=== PATIENT | female | born 2000 | race Caucasian/White ===

== ENCOUNTER 2024-03-22 20:02 | Emergency (ER) | payer OTHER, SELFPAY ==
[2024-03-22] VITALS (13 sets, daily range): BP systolic 134–164; BP diastolic 62–72; PULSE 69–94; TEMP 36.7; O2SAT 98–100; BMI 46.1
--- NOTE | 2024-03-22 20:21 | XR_ITS ---
[address] [address] Patient Name: KODY AGUILERA MRN: [id number] date: 2000 Sex: F Assigned Patient Location: ER Current Patient Location: ED.MAIN Accession/Order Number: [id number] Exam Date: 03/22/2024 20:28 Report Date: 03/22/2024 21:21 At the request of: EWELNIA MCGUIRE Procedure: XR chest 1V EXAM: XR chest 1V HISTORY: Shortness of breath COMPARISON: None. TECHNIQUE: Frontal view of the chest. FINDINGS: No focal consolidations or pleural effusions. Cardiac mediastinal silhouette is unremarkable. Visualized osseous structures are unremarkable. The study is limited due to body habitus. XR/XR chest 1V IMPRESSION: No acute disease. Electronically authenticated by: ABELARDO LOZOYA Date: 03/22/2024 21:21
--- NOTE | 2024-03-22 20:22 | ED.SOB1 ---
HPI - SOB/Dyspnea General Chief Complaint: Shortness of Breath/Dyspnea Stated Complaint: BWC - Difficulty Breathing Time Seen by Provider: 03/22/24 20:10 Source: patient Mode of arrival: walk-in History of Present Illness HPI Narrative: Patient is a 24 year old female who presents to the ED for the evaluation of chest tightness and headache after being exposed to liquid hydrochloric acid Work. 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 She states she was exposed to the area for approximately 15 minutes before she noticed she was developing a headache and chest tightness. She arrives to the emergency department extremely anxious and tearful. She had no syncope, She did not have any direct chemical exposure to the skin. There was no aerosolized acid or gas form that she inhaled. She is not concerned for . She has had no recent illness, vomiting. No hemoptysis or sputum production. She denies any swelling in the arms or legs. No rashes. Related Data Allergies Allergy/AdvReac Type Severity Reaction Status Date / Time Penicillins Allergy Mild Hives Verified 03/22/24 20:15 Review of Systems ROS Constitutional Denies: fever or chills Ears, nose, mouth, and throat Denies: throat pain or nasal congestion Cardiovascular Reports: chest pain and palpitations Respiratory Reports: shortness of breath; Denies: cough Gastrointestinal Denies: abdominal pain, nausea or vomiting Musculoskeletal Denies: back pain Integumentary/Breast Denies: rash Neurological Reports: headache Hematologic/Lymphatic Denies: easy bruising or easy bleeding Exam Narrative Exam Narrative: Gen.: Awake, alert, in no distress Head: Normocephalic, atraumatic ENT: Moist mucous membranes; Mild tonsillar edema without exudate. Uvula midline. Clear speech. Airway widely open and patent. Respiratory: No respiratory distress, lungs clear bilaterally; No wheezing, rhonchi or stridor. Cardio: Regular rate and rhythm Extremities: Moves extremities equally Psych: Tearful, anxious Neuro: No focal neuro deficit Skin: Warm, dry, intact; No rashes Constitutional Vital Signs, click to edit/add: Last Vital Signs Temp 98.1 F 03/22/24 20:09 Pulse 90 03/22/24 22:00 Resp 20 03/22/24 22:00 BP 134/62 03/22/24 22:12 Pulse Ox 98 03/22/24 20:40 O2 Del Method Room Air 03/22/24 20:40 Course Vital Signs Vital signs: Vital Signs Temperature 98.1 F 03/22/24 20:09 Pulse Rate 80 03/22/24 20:09 Respiratory Rate 18 03/22/24 20:09 Blood Pressure 164/72 H 03/22/24 20:09 Pulse Oximetry 100 03/22/24 20:09 Oxygen Delivery Method Room Air 03/22/24 20:09 Temperature 98.1 F 03/22/24 20:09 Pulse Rate 90 03/22/24 22:00 Respiratory Rate 20 03/22/24 22:00 Blood Pressure 134/62 03/22/24 22:12 Pulse Oximetry 98 03/22/24 20:40 Oxygen Delivery Method Room Air 03/22/24 20:40 MDM - SOB/Dyspnea MDM Narrative Medical decision making narrative: G, chest x-ray and lab studies are unremarkable. I did discuss the case with poison control, they recommend a venous blood gas, which is normal. Patient is improved on reevaluation, she is much more calm and breathing easily. She has normal vital signs, no decompensation of her respiratory status or new symptoms. She was given a breathing treatment in the ER with Decadron and ibuprofen for headache. Albuterol inhaler given for home. Activity as tolerated for work, return to the emergency department if symptoms change or worsen. Medical Records Attestation: I reviewed the patient's medical records. Lab Data Attestation: I reviewed the patient's lab results. Labs: Lab Results 03/22/24 Range/Units 20:38 WBC 9.1 (4.0-11.0) 10^3/uL RBC 4.64 (4.20-5.40) 10^6/uL Hgb 13.1 (12.0-16.0) g/dL Hct 40.3 (36.0-48.0) % MCV 86.9 (81.0-99.0) fL MCH 28.2 (26.7-34.0) pg MCHC 32.5 (29.9-35.2) g/dL RDW 12.5 (11.0-15.0) % Plt Count 381 (150-450) 10^3/uL MPV 9.3 L (9.5-13.5) fL Neut % (Auto) 53.8 (43.0-75.0) % Lymph % (Auto) 37.9 (20.5-60.0) % Emmons % (Auto) 5.9 (1.7-12.0) % Eos % (Auto) 1.5 (0.9-7.0) % Baso % (Auto) 0.6 (0.2-2.0) % Neut # (Auto) 4.9 (1.4-6.5) 10^3/uL Lymph # (Auto) 3.4 (1.2-3.8) 10^3/uL Emmons # (Auto) 0.5 (0.3-0.8) 10^3/uL Eos # (Auto) 0.1 (0.0-0.7) 10^3/uL Baso # (Auto) 0.1 (0.0-0.1) 10^3/uL Abs Immat Gran (auto) 0.03 (0.00-0.03) 10^3/uL Imm/Tot Granulo (auto) 0.3 (0.0-0.5) % VBG pH 7.394 (7.330-7.430) VBG pCO2 43.7 (40.0-52.0) mmHg Sodium 138 (136-145) mmol/L Potassium 3.6 (3.5-5.1) mmol/L Chloride 101 (98-107) mmol/L Carbon Dioxide 28.1 (21.0-32.0) mmol/L Anion Gap 12.5 BUN 15.0 (7.0-18.0) mg/dL Creatinine 0.89 (0.55-1.02) mg/dL Est GFR ( Amer) >60 (>=60) Est GFR (Non-Af Amer) >60 (>=60) BUN/Creatinine Ratio 16.9 Glucose 92 (74-106) mg/dL Calcium 9.8 (8.5-10.1) mg/dL TSH 1.847 (0.358-3.740) uIU/mL Imaging Data Chest x-ray: Attestation: I have reviewed the pertinent imaging results. Radiologist's impression: ITS Impressions Chest X-Ray 03/22/24 20:21 IMPRESSION: No acute disease. Electronically authenticated by: ABELARDO LOZOYA Date: 03/22/2024 21:21 ECG Data Attestation: I personally reviewed and interpreted this ECG as follows: (Normal sinus rhythm at a rate of 80 with sinus arrhythmia, no acute ST elevation or ectopy. EKG reviewed by attending physician) ECG interpretation date: 03/22/24 ECG interpretation time: 20:37 Discharge Plan Discharge Stand Alone Forms: Portal Instructions Chief Complaint: Shortness of Breath/Dyspnea Clinical Impression: Chemical exposure Patient Disposition: Home, Self-Care Time of Disposition Decision: 21:48 Condition: Good Print Language: Lithuanian Instructions: Contact Precautions (ED) Referrals: [facility] [Outside] - As soon as possible Discharge Date/Time: 03/22/24 22:21
--- NOTE | 2024-03-22 20:29 | ECG_ITS ---
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
[2024-03-22] MEDS: ALBUTEROL SULFATE 2.5 MG/3 ML VIAL NEB IH (20:35)
[2024-03-22 20:46] LABS: PCO2 VBG 43.7 mmHg (40.0-52.0); pH VBG 7.394 (7.330-7.430)
[2024-03-22 20:47] LABS: Basophils Absolute Auto 0.1 10^3/uL (0.0-0.1); Basophils Percent Auto 0.6 % (0.2-2.0); Eosinophils Absolute Auto 0.1 10^3/uL (0.0-0.7); Eosinophils Percent Auto 1.5 % (0.9-7.0); Hematocrit 40.3 % (36.0-48.0); Hemoglobin 13.1 g/dL (12.0-16.0); Immature Granulocytes Abs Auto 0.03 10^3/uL (0.00-0.03); Immature Granulocytes Pct Auto 0.3 % (0.0-0.5); Lymphocytes Absolute Auto 3.4 10^3/uL (1.2-3.8); Lymphocytes Percent Auto 37.9 % (20.5-60.0); Mean Corpuscular HGB Conc 32.5 g/dL (29.9-35.2); Mean Corpuscular Hemoglobin 28.2 pg (26.7-34.0); Mean Corpuscular Volume 86.9 fL (81.0-99.0); Mean Platelet Volume 9.3 fL (9.5-13.5); Monocytes Absolute Auto 0.5 10^3/uL (0.3-0.8); Monocytes Percent Auto 5.9 % (1.7-12.0); Neutrophils Absolute Auto 4.9 10^3/uL (1.4-6.5); Neutrophils Percent Auto 53.8 % (43.0-75.0); Platelet Count 381 10^3/uL (150-450); Red Blood Count 4.64 10^6/uL (4.20-5.40); Red Cell Distribution Width 12.5 % (11.0-15.0); White Blood Count 9.1 10^3/uL (4.0-11.0)
[2024-03-22 21:08] LABS: Anion Gap 12.5; BUN Creatinine Ratio 16.9; Calcium 9.8 mg/dL (8.5-10.1); Carbon Dioxide 28.1 mmol/L (21.0-32.0); Chloride 101 mmol/L (98-107); Estimated GFR (African America >60 (>=60); Estimated GFR (Non-African Ame >60 (>=60); Glucose 92 mg/dL (74-106); Potassium 3.6 mmol/L (3.5-5.1); Sodium 138 mmol/L (136-145); Thyroid Stimulating Hormone 1.847 uIU/mL (0.358-3.740)
[2024-03-22] MEDS: DEXAMETHASONE SOD PHOS 10 MG/ML VIAL PO (21:17)
[2024-03-22] MEDS: IBUPROFEN 600 MG TABLET PO (21:17)
[2024-03-22] MEDS: ALBUTEROL SULFATE 200 PUFF/6.7 GM INHALER IH (22:10)
== END 2024-03-22 22:21 | disposition home or self-care (01) ==
PROVIDERS: Physician Assistant; Emergency Provider Internal Medicine
DX: Z77.098 Contact with and (suspected) exposure to other hazardous, chiefly nonmedicinal, chemicals (principal); R07.89 Other chest pain; R06.02 Shortness of breath
CPT/HCPCS: 36415; 71045; 80048; 82800; 84443; 85025; 93005; 94640; 99285; J1100

== ENCOUNTER 2024-03-27 13:13 | Emergency (ER) | payer OTHER, SELFPAY ==
[2024-03-27 13:16] VITALS: BP 144/72; PULSE 108; TEMP 36.9; O2SAT 97; BMI 46.1
--- NOTE | 2024-03-27 13:39 | XR_ITS ---
The [address] [address] Patient Name: KODY AGUILERA MRN: [id number] date: 2000 Sex: F Assigned Patient Location: ER Current Patient Location: ER Accession/Order Number: [id number] Exam Date: 03/27/2024 14:00 Report Date: 03/27/2024 14:17 At the request of: DEX THAKKAR Procedure: XR chest 2V EXAM: XR chest 2V HISTORY: SOB COMPARISON: Chest study dated 03/22/2024 TECHNIQUE: PA and lateral views of the chest were obtained. FINDINGS: Heart and mediastinal contours are unremarkable in appearance. No acute infiltrate or consolidations are seen. No obvious pneumothorax. Slight convexity of the dorsal spine to the right. Findings compatible with nipple piercing jewelry bilaterally. XR/XR chest 2V IMPRESSION: No acute process seen in the chest. Electronically authenticated by: LAM MEDINA Date: 03/27/2024 14:17
--- NOTE | 2024-03-27 13:55 | ED.GENADUL1 ---
HPI HPI - General Adult General Chief complaint: Shortness of Breath/Dyspnea Stated complaint: SOB Time Seen by Provider: 03/27/24 13:35 Source: patient Mode of arrival: walk-in Limitations: no limitations History of Present Illness HPI narrative: Patient is a 24-year-old female presents to the ER with concerns of shortness of breath. Patient reports on 03/22 she was exposed to hydrochloric acid at work that was leaking from a train car. Patient reports at that time she had irritation to her throat lungs and headache, her headache has resolved, patient still reports some irritation in her throat but has no difficulty eating or drinking. Patient states she was trying to clean at home and noticed that she was still short of breath with activity, she has no significant symptoms at rest or with light activity but expressed concern about returning to work tomorrow with her symptoms still lingering. Patient has not yet been seen in the occupational medicine clinic. She denies any cough. She denies any chest pain or discomfort she denies any recent long travels flights or surgeries.Denies any eye irritation or visual disturbance. She denies any history of smoking or prior asthma. Location: Reports chest; Denies head Quality: Reports burning Relieving factors: Reports rest Exacerbating factors: Reports movement Related Data Home Medications ?Medication ?Instructions ?Recorded ?Confirmed No Known Home Medications 03/27/24 03/27/24 Allergies Allergy/AdvReac Type Severity Reaction Status Date / Time Penicillins Allergy Mild Hives Verified 03/22/24 20:15 Opioid HPI Opioid Management Most Recent Opioid Data: No Data to Display Review of Systems ROS Constitutional Denies: fever or chills Eyes Denies: change in vision, blurry vision or eye discomfort Ears, nose, mouth, and throat Reports: throat pain; Denies: neck pain, throat swelling, difficulty swallowing, hoarseness, mouth pain, swelling of lips/tongue or nasal congestion Cardiovascular Reports: shortness of breath with exertion; Denies: chest pain, palpitations, edema, swelling of feet/ankles or lightheadedness Respiratory Reports: shortness of breath; Denies: cough or wheezing Gastrointestinal Denies: abdominal pain, nausea or vomiting Genitourinary Denies: painful urination Musculoskeletal Denies: back pain, neck pain or extremity pain Integumentary/Breast Denies: rash, itching, redness or skin pain Neurological Denies: headache, numbness in extremities or weakness in extremities Psychiatric Denies: anxiety Endocrine Denies: excessive urination Allergic/Immunologic Denies: hives or throat swelling Exam Narrative Exam Narrative: Nurses notes and vital signs reviewed and patient is not hypoxic. General: The patient appears well and in no apparent distress. Patient is resting comfortably on cart. Skin: Warm, dry, no pallor noted. Head: Normocephalic, atraumatic Neck: Supple, trachea mid-line, no tenderness, no lymphadenopathy Eye: Pupils are equal, round and reactive to light, EOMI Ears, Nose, Mouth, and Throat: TM are clear, normal light reflex, oral mucosa is moist, no posterior oropharynx erythema or hypertrophy,No evidence of irritation to posterior pharynx uvula is mid-line Cardiovascular: Regular Rate and Rhythm Respiratory: Patient is in no distress, no accessory muscle use, lungs are clear to auscultation, no wheezing, rales or rhonchi. Chest Wall: no tenderness Back: non-tender, no CVA tenderness Musculoskeletal: normal ROM, no tenderness, no swelling GI: Normal bowel sounds, no tenderness to palpation, no masses appreciated. No rebound, guarding, or rigidity noted. Neurological: A&O x4 Psychiatric: Cooperative Constitutional Vital Signs, click to edit/add: Last Vital Signs Temp 98.5 F 03/27/24 13:16 Pulse 108 H 03/27/24 13:16 Resp 18 03/27/24 13:16 BP 144/72 H 03/27/24 13:16 Pulse Ox 97 03/27/24 13:16 O2 Del Method Room Air 03/27/24 13:16 Course Vital Signs Vital signs: Vital Signs Temperature 98.5 F 03/27/24 13:16 Pulse Rate 108 H 03/27/24 13:16 Respiratory Rate 18 03/27/24 13:16 Blood Pressure 144/72 H 03/27/24 13:16 Pulse Oximetry 97 03/27/24 13:16 Oxygen Delivery Method Room Air 03/27/24 13:16 Temperature 98.5 F 03/27/24 13:16 Pulse Rate 108 H 03/27/24 13:16 Respiratory Rate 18 03/27/24 13:16 Blood Pressure 144/72 H 03/27/24 13:16 Pulse Oximetry 97 03/27/24 13:16 Oxygen Delivery Method Room Air 03/27/24 13:16 Medical Decision Making MDM Narrative Medical decision making narrative: Patient reevaluated, notes that she is doing well. She has her inhaler previously prescribed, states she is only used it once or twice today and her chief concern is about returning to work tomorrow without restrictions. We discussed her work, recommend appointment with occupational medicine clinic. I did contact them directly and they are able to see her on Saturday at 11:15 AM. Patient is agreeable to this appointment. She may return to the ER at any time should she develop any worsening shortness of breath. Patient will try to limit exposures over the weekend and rest, Imaging Data Chest x-ray: Radiologist's impression: ITS Impressions Chest X-Ray 03/27/24 13:39 IMPRESSION: No acute process seen in the chest. Electronically authenticated by: LAM MEDINA Date: 03/27/2024 14:17 Discharge Plan Discharge Stand Alone Forms: Portal Instructions Chief Complaint: Shortness of Breath/Dyspnea Clinical Impression: Chemical exposure, Shortness of breath Patient Disposition: Home, Self-Care Time of Disposition Decision: 14:24 Condition: Good Prescriptions / Home Meds: No Action No Known Home Medications Print Language: Mauritian Instructions: Shortness of Breath (ED) Referrals: [facility] [Outside] - 03/31/24 11:15 am Discharge Date/Time: 03/27/24 14:40
== END 2024-03-27 14:40 | disposition home or self-care (01) ==
PROVIDERS: Emergency Provider Emergency Medicine
DX: Z77.098 Contact with and (suspected) exposure to other hazardous, chiefly nonmedicinal, chemicals (principal); R06.02 Shortness of breath
CPT/HCPCS: 71046; 99283

== ENCOUNTER 2024-05-06 18:06 | Emergency (ER) | payer OTHER, SELFPAY ==
[2024-05-06 18:11] VITALS: BP 133/98; PULSE 77; TEMP 37.3; O2SAT 99; BMI 44.3
--- OUTSIDE RECORDS SUMMARY | 2024-05-06 18:13 | XMS_ITS | CCD ---
Author Organization [facility] Care Team Providers Care Summer Law Clerk Name Role Phone PHYSICIAN, DEFAULT Unavailable Unavailable PHYSICIAN, DEFAULT Unavailable Unavailable PHYSICIAN, DEFAULT Unavailable Unavailable PHYSICIAN, DEFAULT Unavailable Unavailable NINA, CHERIE H Unavailable Unavailable NINA, CHERIE H Unavailable Unavailable MJ JOEL Unavailable Unavailable [place] IGLESIAS Unavailable Unavailable [place] Unavailable Unavailable NINA, CHERIE H Unavailable Unavailable [place] Unavailable Unavailable KEOPANTERA Unavailable Unavailable NINA, CHERIE H Unavailable Unavailable NINA, CHERIE H Unavailable Unavailable SELF, REFERRED Unavailable Unavailable SELF, REFERRED Unavailable Unavailable ArjunCynthia Attending Unavailable ArjunCynthia Referring Unavailable Arjun, Cynthia Guthrie Primary Care Unavailable ArjunCynthia Attending Unavailable ArjunCynthia Referring Unavailable Arjun, Cynthia Ann Primary Care Unavailable Judy Mejia Attending Unavailable Judy Mejia Referring Unavailable Arjun, Cynthia Jerri Primary Care Unavailable Jered Canales Attending Unavailabl e Jered Canales Referring Unavailabl e Arjun, Cynthia Guthrie Primary Care Unavailable ArjunCynthia Attending Unavailable ArjunCynthia Referring Unavailable ArjunCynthia Primary Care Unavailable Tor Patino Unavailable Unavailable Arjun, Cynthia A Unavailable Unavailable Arjun, Cynthia A Unavailable Unavailable NO FAMILY, PHYSICIAN Primary Care Provider Unava ilDO Dillon Cohen Emergency Provider Unavai Dillon Cano Attending Unavailable Dillon José Admitting Unavailable NO FAMILY, PHYSICIAN Primary Care Unavailable ROSANGELA POND Attending Unavailable CUTLER, FABY L Attending Unavailable LG GONZALEZ Referring Unavailable CUTLER, FABY L Attending Unavailable CUTLER, FABY L Attending Unavailable Allergies Allergy Classification Reported Allergen(s) Allergy Type Date of Onset Reaction(s) Facility (1 source) NKA; Translations: [NKA] Propensity to adverse reactions (disorder) 7 [facility] (1 source) No Known Allergies; Translations: [No Known Allergies] Propensity to adverse reactions (disorder) [facility] (2 sources) Penicillins; Translations: [Penicillins] Allergy to drug (finding) 3 Swelling of Lip/Tongue/Thro at [facility] (1 source) Penicillins Drug allergy (disorder) 3 [facility] Medications Current Medications Medication Drug Class(es) Dates Sig (Normalized) Sig (Original) [place] (No Known Home Meds) (1 source) Start: 01-26-2020 [place] (No Known Home Meds) Active January 26, 2020 12:00am Completed/Discontinued Medications Medication Drug Class(es) Dates Sig (Normalized) Sig (Original) acetaminophen 325 mg / HYDROcodone bitartrate 5 mg oral tablet (1 source) Opioid Agonist Start: 9 End: 9 take 2 tablets by mouth every four to six hours Hydrocodone-Acetami nophen ([place]) 5-325 mg tablet Discontinued 2 TAB PO EVERY 4-6 HOURS 10 2 February 23, 2019 February 25, 2019 12:05am azithromycin 250 mg oral tablet (1 source) Macrolide Antimicrobial Start: 9 End: 0 take 250 mg by mouth once daily Azithromycin Discontinued 250 MG PO Daily February 23, 2019 12:00am January 26, 2020 4:00pm cyclobenzaprine hydrochloride 10 mg oral tablet (1 source) Muscle Relaxant Start: 8 End: 9 Cyclobenzaprine Discontinued TABLET October 12, 2018 1:00am February 23, 2019 1:05am diphenhydrAMINE hydrochloride 25 mg oral capsule (1 source) Histamine-1 Receptor Antagonist Start: 8 End: 9 take 1 capsule by mouth every four hours Diphenhydramine Hcl (Benadryl) 25 mg capsule Discontinued 25 MG PO Q4H 20 October 12, 2018 1:00am February 23, 2019 1:05am fluticasone propionate 0.05 mg/actuat metered dose nasal spray (1 source) Corticosteroid Start: 9 End: 0 take 1 spray(s) nasal route twice daily Fluticasone Propionate (Flonase Allergy Relief) 50 mcg/actuation spray,suspension Discontinued 1 SPRAY INTRANASAL Twice daily 9.9 February 23, 2019 12:00am January 26, 2020 4:00pm administer into each nostril ibuprofen 800 mg oral tablet (1 source) Nonsteroidal Anti-inflammatory Drug Start: 8 End: 0 take 800 mg by mouth every six hours Ibuprofen Discontinued 800 MG PO Q6H October 12, 2018 1:00am January 26, 2020 4:00pm meloxicam 15 mg oral tablet (1 source) Nonsteroidal Anti-inflammatory Drug Start: 8 End: 9 Meloxicam Discontinued TABLET October 12, 2018 1:00am February 23, 2019 1:05am nitrofurantoin, macrocrystals 25 mg / nitrofurantoin, monohydrate 75 mg oral capsule (1 source) Nitrofuran Antibacterial Start: 0 End: 2 take 1 capsule by mouth twice daily at mealtime Nitrofurantoin Monohyd/M-Cryst (Macrobid) 100 mg capsule Discontinued 100 MG PO Twice daily 10 5 January 28, 2020 12:00am January 14, 2022 2:48am must administer with a meal/food phentermine hydrochloride 37.5 mg oral tablet (1 source) Sympathomimetic Amine Anorectic Start: 8 End: 9 Phentermine Discontinued TABLET October 12, 2018 1:00am February 23, 2019 1:06am predniSONE 20 mg oral tablet (1 source) Start: 8 End: 9 Prednisone Discontinued 20 MG PO Daily October 12, 2018 1:00am February 23, 2019 1:05am 60mg for 3 days then 40mg for 3 days then 20 mg for 3 days then 10mg for 3 days sulfamethoxazole 800 mg / trimethoprim 160 mg oral tablet (1 source) Dihydrofolate Reductase Inhibitor Antibacterial, Sulfonamide Antimicrobial Start: 9 take 1 tablet by mouth twice daily Sulfamethoxazole-Tr imethoprim 800-160 MG Oral Tablet one tablet twice daily Quantity: 20 Refills: 0 Tor Patino MD Start : 27-Oct-2019 Active SUMAtriptan 50 mg oral tablet (1 source) Serotonin-1b and Serotonin-1d Receptor Agonist Start: 0 End: 2 take 1 tablet by mouth once daily Sumatriptan Succinate (Imitrex) 50 mg tablet Discontinued 0 PO .COMPLEX January 28, 2020 12:00am January 14, 2022 2:49am take 1 tab at onset of headache; if no relief may repeat 1 tab in 2hr; max = 4 tabs/day (24hr) Problems Active Problems Problem Classification Problem Date Documented Da te Episodic/Chronic Alcohol-related disorders (1 source) Alcohol intoxication; Translations: [Alcohol use, unspecified with intoxication, unspecified] 01-14-2022 Episodic Anxiety disorders (1 source) Anxiety disorder; Translations: [Anxiety disorder, unspecified type] Chronic Conditions associated with dizziness or vertigo (2 sources) Dizziness; Translations: [Dizziness and giddiness] Onset: 04-29-2023 04-29-2023 Episodic Headache; including migraine (2 sources) Status migrainosus; Translations: [Migraine, unspecified, not intractable, with status migrainosus] 01-26-2020 Chronic Menstrual disorders (1 source) Menorrhagia; Translations: [Menorrhagia with regular cycle] Chronic Mood disorders (1 source) Depressive disorder; Translations: [Depression] Chronic Other circulatory disease (1 source) Feeling of lump in throat; Translations: [History of Sensation of lump in throat] Episodic Other connective tissue disease (1 source) Neurological deficit; Translations: [Other symptoms and signs involving the nervous system] 01-26-2020 Episodic Other connective tissue disease (1 source) Weakness of face muscles; Translations: [Facial weakness] 01-26-2020 Episodic Other fractures (1 source) Personal history of (healed) stress fracture; Translations: [History of stress fracture] Episodic Other lower respiratory disease (1 source) H/O: respiratory disease; Translations: [History of acute sinusitis] Episodic Other nervous system disorders (1 source) Numbness of foot ; Translations: [Anesthesia of skin] 01-26-2020 Episodic Other nervous system disorders (1 source) Numbness of hand; Translations: [Anesthesia of skin] 01-26-2020 Episodic Other non-traumatic joint disorders (3 sources) Pain in left knee; Translations: [PAIN IN LEFT KNEE] Onset: 03-25-2018 Episodic Other nutritional; endocrine; and metabolic disorders (1 source) Childhood obesity; Translations: [BMI (body mass index), pediatric, greater than or equal to 95% for age] Chronic Other nutritional; endocrine; and metabolic disorders (1 source) Abnormal weight gain; Translations: [Weight gain, abnormal] Episodic Other nutritional; endocrine; and metabolic disorders (1 source) Weight gain; Translations: [History of Weight gain] Episodic Other upper respiratory infections (1 source) Acute bacterial pharyngitis; Translations: [History of Pharyngitis due to group A beta hemolytic Streptococci] Episodic Skin and subcutaneous tissue infections (1 source) Abscess; Translations: [Abscess] Episodic Sprains and strains (2 sources) Strain of right quadriceps muscle, fascia and tendon, initial encounter; Translations: [Strain of left quadriceps muscle, fascia and tendon, initial encounter] Onset: 10-31-2017 Episodic Unclassified (2 sources) Unknown / UNK(Unknown) Onset: 10-31-2017 Past or Other Problems Problem Classification Problem Date Documented Da te Episodic/Chronic Joint disorders and dislocations; trauma-related (4 sources) Recurrent dislocation of patella, right knee; Translations: [RECURRENT DISLOCATION OF PATELLA, RIGHT KNEE] Onset: 10-31-2017 Episodic Residual codes; unclassified (1 source) Requires vaccination; Translations: [Need for vaccination] Unclassified (1 source) History finding; Translations: [No pertinent past medical history] Unclassified (1 source) Patient encounter status; Translations: [Encounter for routine child health examination without abnormal findings] Unclassified (1 source) History of clinical finding in subject; Translations: [History of cough] NEGATED: Highlighted row has not occurred!Residual codes; unclassified (6 sources) Disease Episodic Results Test Name Value Interpretation Reference Range Facility Basic Metabolic Panelon 04-11 Anion gap [Moles/Vol] 12.1 mmol/L Normal 6.0-15.0 [facility] Comment on above: Performed By: #### H S TROP, BMP, CBC #### [facility] [address] Calcium [Mass/Vol] 9.2 mg/dL Normal 8.6-10.3 [facility] Comment on above: Performed By: #### H S TROP, BMP, CBC #### [facility] [address] [place] [address] [place] Chloride [Moles/Vol] 106 mmol/L Normal 98-107 [facility] Comment on above: Performed By: #### H S TROP, BMP, CBC #### [facility] [address] [place] [address] [place] CO2 [Moles/Vol] 24.7 mmol/L Normal 21.0-31.0 [facility] Comment on above: Performed By: #### H S TROP, BMP, CBC #### [facility] [address] Creatinine [Mass/Vol] 0.71 mg/dL Normal 0.60-1.20 [facility] Comment on above: Performed By: #### H S TROP, BMP, CBC #### [facility] [address] [place] [address] [place] Creatinine Clr Calc Pharmacy 148.61 [facility] Comment on above: Result Comment: PERF ORMED BY: [place] [address] PATHOLOGIST COFFEE BREWER BECKY APARICIO M.D. Performed By: #### H S TROP, BMP, CBC #### [place] [address] [place] GFR/1.73 sq M.predicted MDRD (S/P/Bld) [Vol rate/Area] mL/min/{1.73_m2} [facility] Comment on above: Performed By: #### H S TROP, BMP, CBC #### [facility] [address] [place] [address] [place] Glucose [Mass/Vol] 101 mg/dL High 70-100 [facility] Comment on above: Result Comment: [place] Glucose Reference Range is dependent on time and content of last meal. Glucose of more than 200 mg/dL in a nonstressed, ambulatory subject supports the diagnosis of Diabetes Mellitus. ADA recommended reference range Performed By: #### H S TROP, BMP, CBC #### [facility] [address] [place] [address] [place] Potassium [Moles/Vol] 3.8 mmol/L Normal 3.5-5.1 [facility] Comment on above: Performed By: #### H S TROP, BMP, CBC #### [facility] [address] [place] [address] [place] Sodium [Moles/Vol] 139 mmol/L Normal 136-145 [facility] Comment on above: Performed By: #### H S TROP, BMP, CBC #### [facility] [address] Urea nitrogen [Mass/Vol] 13 mg/dL Normal 7-25 [facility] Comment on above: Performed By: #### H S TROP, BMP, CBC #### [facility] [address] Basophils Auto (Bld) [#/Vol] Ordered By: Dillon José on 04-29-2023 Basophils (Bld) [#/Vol] 0.1 10*3/uL 0.0-0.2 [facility] Basophils/100 WBC Auto (Bld) Ordered By: Dillon José on 04-29-2023 Basophils/100 WBC (Bld) 0.8 % . [facility] Bilirubin Test strip Ql (U)O rdered By: Dillon José on 04-29-2023 Bilirubin Ql (U) Negative Negative [facility] Calcium [Mass/volume] in Ser um or PlasmaOrdered By: Dillon José on 04-29-2023 Calcium [Mass/Vol] 9.2 mg/dL 8.6-10.3 [facility] Carbon dioxide, total [Moles /volume] in Serum or PlasmaOrdered By: Dillon José on 04-29-2023 CO2 [Moles/Vol] 24.7 mmol/L 21.0-31.0 [facility] Chloride [Moles/volume] in S michael or PlasmaOrdered By: Dillon José on 04-29-2023 Chloride [Moles/Vol] 106 mmol/L 98-107 [facility] Color Auto (U)Ordered By: Dania José on 04-29-2023 Color (U) Yellow Yellow [facility] Complete Blood Count Auto Di ffon 04-29-2023 Basophils (Bld) [#/Vol] 0.1 10*3/uL Normal 0.0-0.2 [facility] Comment on above: Result Comment: PERF ORMED BY: [facility] [address] [place] [address] PATHOLOGIST COFFEE BREWER BECKY APARICIO M.D. Performed By: #### H S TROP, BMP, CBC #### [facility] [address] [place] [address] [place] Basophils/100 WBC (Bld) 0.8 % Normal . [facility] Comment on above: Performed By: #### H S TROP, BMP, CBC #### [facility] [address] [place] [address] [place] Eosinophils (Bld) [#/Vol] 0.1 10*3/uL Normal 0.0-0.45 [facility] Comment on above: Performed By: #### H S TROP, BMP, CBC #### [facility] [address] [place] [address] [place] Eosinophils/100 WBC (Bld) 1.8 % Normal . [facility] Comment on above: Performed By: #### H S TROP, BMP, CBC #### [facility] [address] [place] [address] [place] Erythrocyte distribution width (RBC) [Ratio] 13.1 % Normal 11.9-15.3 [facility] Comment on above: Performed By: #### H S TROP, BMP, CBC #### [facility] [address] [place] [address] [place] Hematocrit (Bld) [Volume fraction] 39.5 % Normal 34.0-46.4 [facility] Comment on above: Performed By: #### H S TROP, BMP, CBC #### [facility] [address] [place] [address] [place] Hemoglobin (Bld) [Mass/Vol] 13.5 g/dL Normal 11.8-15.4 [facility] Comment on above: Performed By: #### H S TROP, BMP, CBC #### [facility] [address] [place] [address] Lymphocytes (Bld) [#/Vol] 2.7 10*3/uL Normal 1.00-4.8 [facility] Comment on above: Performed By: #### H S TROP, BMP, CBC #### [address] Lymphocytes/100 WBC (Bld) 33.8 % Normal . [facility] Comment on above: Performed By: #### H S TROP, BMP, CBC #### [address] MCH (RBC) [Entitic mass] 28.6 pg Normal 24.7-34.3 [facility] Comment on above: Performed By: #### H S TROP, BMP, CBC #### [address] MCV (RBC) [Entitic vol] 83.5 fL Normal 80-100 [facility] Comment on above: Performed By: #### H S TROP, BMP, CBC #### [address] Mean Corpuscular HGB Conc 34.3 g/dL Normal 32.0-35.0 [facility] Comment on above: Performed By: #### H S TROP, BMP, CBC #### [address] Monocytes (Bld) [#/Vol] 0.5 10*3/uL Normal 0.0-0.8 [facility] Comment on above: Performed By: #### H S TROP, BMP, CBC #### [place] [address] [place] Monocytes/100 WBC (Bld) 18.91 % Normal 0.00-20.00 [facility] Comment on above: Performed By: #### H S TROP, BMP, CBC #### [address] Monocytes/100 WBC (Bld) 6.4 % Normal . [facility] Comment on above: Performed By: #### H S TROP BMP, CBC #### [facility] [address] Neutrophils (Bld) [#/Vol] 4.5 10*3/uL Normal 1.8-7.7 [facility] Comment on above: Performed By: #### H S TROP BMP, CBC #### [address] Neutrophils/100 WBC (Bld) 57.2 % Normal . [facility] Comment on above: Performed By: #### H Catracho DIAMOND BMP, CBC #### [address] NRBC% 0.0 /100{WBC} Normal 0-0.5 [facility] Comment on above: Performed By: #### H Catracho TROP BMP, CBC #### [address] Platelet mean volume (Bld) [Entitic vol] 7.2 fL Normal 6.3-10.7 [facility] Comment on above: Performed By: #### H Catracho TROP BMP, CBC #### [place] [address] [place] Platelets (Bld) [#/Vol] 353 10*3/uL Normal 150-450 [facility] Comment on above: Performed By: #### H S TROP BMP, CBC #### [address] RBC (Bld) [#/Vol] 4.73 10*6/uL Normal 3.60-5.00 [facility] Comment on above: Performed By: #### H S TROP BMP, CBC #### [place] [address] [place] WBC (Bld) [#/Vol] 7.9 10*3/uL Normal 3.8-11.6 [facility] Comment on above: Performed By: #### H S TROP BMP, CBC #### [facility] [address] [place] [id number] [facility] Creatinine [Mass/volume] in Serum or PlasmaOrdered By: Dillon José on 04-29-2023 Creatinine [Mass/Vol] 0.71 mg/dL 0.60-1.20 [facility] ECG 12 lead ECGon 04-29-2023 ECG 12 lead ECG [facility] [place] [address] [place] [address] Electrocardiograph Report Signed Patient: Milena Aguilera MR#: [id number] : 2000 Acct:[id number] Age/Sex: 23 / F ADM Date: 04/29/23 Loc: ER Room: Type: [facility] ER Attending Dr: Ordering Provider: Dillon José DO Date of Service: 04/29/23 ECG/ECG 12 lead ECG: Dizziness Copies to: Test Reason : Blood Pressure : 140/073 mmHG Vent. Rate : 060 BPM Atrial Rate : 060 BPM P-R Int : 120 ms QRS Dur : 074 ms QT Int : 422 ms P-R-T Axes : 030 084 061 degrees QTc Int : 422 ms Normal sinus rhythm Confirmed by Dillon José DO ([id number]) on 04/30/2023 3:41:47 AM Referred By: Electronically Signed By:Dillon José DO Transcribed By: MUS Signed By Dillon José DO 0341 Normal [facility] Eosinophils Auto (Bld) [#/Vo l]Ordered By: Dillon José on 04-29-2023 Eosinophils (Bld) [#/Vol] 0.1 10*3/uL 0.0-0.45 [facility] Eosinophils/100 WBC Auto (Bl d)Ordered By: Dillon José on 04-29-2023 Eosinophils/100 WBC (Bld) 1.8 % . [facility] Erythrocyte distribution wid th Auto (RBC) [Ratio]Ordered By: Dillon José on 04-29-2023 Erythrocyte distribution width (RBC) [Ratio] 13.1 % 11.9-15.3 [facility] Glucose [Mass/volume] in Ser um or PlasmaOrdered By: Dillon José on 04-29-2023 Glucose [Mass/Vol] 101 mg/dL 70-100 [facility] Comment on above: ADA recommended refe rence rangeRandom Glucose Reference Range is dependent on time and content of last meal. Glucose of more than 200 mg/dL in a nonstressed, ambulatory subject supports the diagnosis of Diabetes Mellitus. HCG ( test) IA.rapi d Ql (U)Ordered By: Dillon José on 04-29-2023 HCG ( test) Ql (U) Negative [facility] HCG,Urineon 04-29-2023 Beta HCG ( test) Ql (U) Negative Normal [facility] Comment on above: Order Comment: Name Collection Type:: Clean-Voided Midstream Result Comment: PERF ORMED BY: [place] [address] PATHOLOGIST COFFEE BREWER BECKY APARICIO M.D. Performed By: #### U A, [facility] #### [address] Hematocrit Auto (Bld) [Volum e fraction]Ordered By: Dillon José on 04-29-2023 Hematocrit (Bld) [Volume fraction] 39.5 % 34.0-46.4 [facility] Hemoglobin [Mass/volume] in BloodOrdered By: Dillon José on 04-29-2023 Hemoglobin (Bld) [Mass/Vol] 13.5 g/dL 11.8-15.4 [facility] Ketones Auto test strip (U) [Mass/Vol]Ordered By: Dillon José on 04-29-2023 Ketones (U) [Mass/Vol] Negative Negative [facility] Leukocytes [#/volume] correc tomi for nucleated erythrocytes in Blood by Automated counOrdered By: Dillon José on 04-29-2023 WBC corrected for nucl RBC Auto (Bld) [#/Vol] 7.9 10*3/uL 3.8-11.6 [facility] Lymphocytes Auto (Bld) [#/Vo l]Ordered By: Dillon José on 04-29-2023 Lymphocytes (Bld) [#/Vol] 2.7 10*3/uL 1.00-4.8 [facility] Lymphocytes/100 WBC Auto (Bl d)Ordered By: Dillon José on 04-29-2023 Lymphocytes/100 WBC (Bld) 33.8 % . [facility] MCH Auto (RBC) [Entitic mass ]Ordered By: Dillon José on 04-29-2023 MCH (RBC) [Entitic mass] 28.6 pg 24.7-34.3 [facility] MCHC Auto (RBC) [Mass/Vol]Or dered By: Dillon José on 04-29-2023 MCHC (RBC) [Mass/Vol] 34.3 g/dL 32.0-35.[address] [facility] MCV Auto (RBC) [Entitic vol] Ordered By: Dillon José on 04-29-2023 MCV (RBC) [Entitic vol] 83.5 fL 80-100 [facility] Monocyte distribution width [Entitic volume] in Blood by AutomatedOrdered By: Dillon José on 04-29-2023 Monocyte distribution width Auto (Bld) [Entitic vol] 18.91 % 0.00-20.00 [facility] Monocytes Auto (Bld) [#/Vol] Ordered By: Dillon José on 04-29-2023 Monocytes (Bld) [#/Vol] 0.5 10*3/uL 0.0-0.8 [facility] Monocytes/100 WBC Auto (Bld) Ordered By: Dillon José on 04-29-2023 Monocytes/100 WBC (Bld) 6.4 % . [facility] Neutrophils Auto (Bld) [#/Vo l]Ordered By: Dillon José on 04-29-2023 Neutrophils (Bld) [#/Vol] 4.5 10*3/uL 1.8-7.7 [facility] Neutrophils/100 WBC Auto (Bl d)Ordered By: Dillon José on 04-29-2023 Neutrophils/100 WBC (Bld) 57.2 % . [facility] Nitrite Test strip Ql (U)Ord ered By: Dillon José on 04-29-2023 Nitrite Ql (U) Negative Negative [facility] No Panel InformationOrdered By: Dillon José on 04-29-2023 Estimated GFR (CKD-EPI) > 60.0 mL/Min [facility] Creatinine Clearance (Chem 148.61 [facility] Nucleated erythrocytes [Pres ence] in Blood by Automated countOrdered By: Dillon José on 04-29-2023 Nucleated RBC Auto Ql (Bld) 0.0 /100{WBC} 0-0.5 [facility] Platelet mean volume Auto (B ld) [Entitic vol]Ordered By: Dillon José on 04-29-2023 Platelet mean volume (Bld) [Entitic vol] 7.2 fL 6.3-10.7 [facility] Platelets Auto (Bld) [#/Vol] Ordered By: Dillon José on 04-29-2023 Platelets (Bld) [#/Vol] 353 10*3/uL 150-450 [facility] Potassium [Moles/volume] in Serum or PlasmaOrdered By: Dillon José on 04-29-2023 Potassium [Moles/Vol] 3.8 mmol/L 3.5-5.1 [facility] Protein Auto test strip (U) [Mass/Vol]Ordered By: Dillon José on 04-29-2023 Protein (U) [Mass/Vol] Negative Negative [facility] RBC Auto (Bld) [#/Vol]Ordere d By: Dillon José on 04-29-2023 RBC (Bld) [#/Vol] 4.73 10*6/uL 3.60-5.00 [facility] Serum or plasma anion gap de terminationOrdered By: Dillon José on 04-29-2023 Anion gap [Moles/Vol] 12.1 mmol/L 6.0-15.0 [facility] Sodium [Moles/volume] in Ser um or PlasmaOrdered By: Dillon José on 04-29-2023 Sodium [Moles/Vol] 139 mmol/L 136-145 [facility] Specific gravity Auto test s trip (U) [Rel density]Ordered By: Dillon José on 04-29-2023 Specific gravity (U) [Rel density] 1.020 1.001-1.030 [facility] Troponin I High Sensitivityo n 04-29-2023 Troponin I High Sensitivity < 2.3 Normal 0.0-15.0 [facility] Comment on above: Result Comment: PERF ORMED BY: [address] [place] [address] PATHOLOGIST COFFEE BREWER BECKY APARICIO M.D. Performed By: #### H S TROP, BMP, CBC #### [facility] [address] Troponin I.cardiac [Mass/vol ume] in Serum or Plasma by Detection limit <= 0.01 ng/Ordered By: Dillon José on 04-29-2023 Troponin I.cardiac DL <= 0.01 ng/mL [Mass/Vol] < 2.3 pg/mL 0.0-15.0 [facility] Urea nitrogen [Mass/volume] in Serum or PlasmaOrdered By: Dillon José on 04-29-2023 Urea nitrogen [Mass/Vol] 13 mg/dL 06-04 [facility] Urinalysison 04-29-2023 Appearance (U) Clear Normal Clear [facility] Comment on above: Order Comment: Name Collection Type:: Clean-Voided Midstream Performed By: #### U A, UHCG #### [facility] [address] [place] [address] [place] Bilirubin,Urine Negative Normal Negative [facility] Comment on above: Order Comment: Name Collection Type:: Clean-Voided Midstream Performed By: #### U A, UHCG #### [facility] [address] [place] [id number] [place] Color (U) Yellow Normal Yellow [facility] Comment on above: Order Comment: Name Collection Type:: Clean-Voided Midstream Performed By: #### U A, UHCG #### [facility] [address] [id number] [place] Glucose Ql (U) Normal Normal Normal [facility] Comment on above: Order Comment: Name Collection Type:: Clean-Voided Midstream Performed By: #### U A, UHCG #### [address] Ketones Ql (U) Negative Normal Negative [facility] Comment on above: Order Comment: Name Collection Type:: Clean-Voided Midstream Performed By: #### U A, UHCG #### [address] Leukocyte esterase Test strip Ql (U) Negative Normal Negative [facility] Comment on above: Order Comment: Name Collection Type:: Clean-Voided Midstream Performed By: #### U A, UHCG #### [address] Nitrite,Urine Negative Normal Negative [facility] Comment on above: Order Comment: Name Collection Type:: Clean-Voided Midstream Performed By: #### U A, UHCG #### [address] Occult Blood,Urine Negative Normal Negative [facility] Comment on above: Order Comment: Name Collection Type:: Clean-Voided Midstream Performed By: #### U A, UHCG #### [address] pH (U) 7.0 [pH] Normal 5.0-9.0 [facility] Comment on above: Order Comment: Name Collection Type:: Clean-Voided Midstream Performed By: #### U A, UHCG #### [place] [address] [place] Protein,Urine Negative Normal Negative [facility] Comment on above: Order Comment: Name Collection Type:: Clean-Voided Midstream Performed By: #### U A, UHCG #### [address] Specificy [place],Urine 1.020 Normal 1.001-1.030 [facility] Comment on above: Order Comment: Name Collection Type:: Clean-Voided Midstream Performed By: #### U A, UHCG #### [facility] [address] Urobilinogen,Urine Normal Normal Normal [facility] Comment on above: Order Comment: Name Collection Type:: Clean-Voided Midstream Performed By: #### U A, UHCG #### [facility] [address] Urine clarity by refractomet ry automatedOrdered By: Dillon José on 04-29-2023 Clarity Refractometry automated (U) Clear Clear [facility] Urine glucose measurement by automated test strip (mass/volume)Ordered By: Dillon José on 04-29-2023 Glucose Auto test strip (U) [Mass/Vol] Normal mg/dL Normal [facility] Urine hemoglobin detection b y automated test stripOrdered By: Dillon José on 04-29-2023 Hemoglobin Auto test strip Ql (U) Negative Negative [facility] Urine leukocyte esterase det ection by automated test stripOrdered By: Dillon José on 04-29-2023 Leukocyte esterase Auto test strip Ql (U) Negative Negative [facility] Urobilinogen Auto test strip (U) [Mass/Vol]Ordered By: Dillon José on 04-29-2023 Urobilinogen (U) [Mass/Vol] Normal mg/dL Normal [facility] WBC Auto (Bld) [#/Vol]Ordere d By: Dillon José on 04-29-2023 WBC (Bld) [#/Vol] 7.9 10*3/uL 3.8-11.6 [facility] XR chest 1V portableon 04-29 XR chest 1V portable [facility] [address] [place] [address] XRay Report Signed Patient: Milena Aguilera MR#: [id number] : 2000 Acct:[id number] Age/Sex: 23 / F ADM Date: 04/29/23 Loc: ER Room: Type: PRE ER Attending Dr: Copies to: Dillon José DO Ordering Provider: Dillon José DO Date of Service: 04/29/23 XR/XR chest 1V portable: Dizziness SINGLE VIEW CHEST CLINICAL HISTORY: Dizziness COMPARISON: Chest 01/26/2020 FINDINGS: Heart normal in size. Lungs are clear. No free air. XR/XR chest 1V portable IMPRESSION: NO ACUTE FINDINGS Impression dictated by: Fredo Lopez Jr., D.O.04/29/2023 5:45 PM Dictation Location: [place] [address] Transcribed By: [facility] 04/29/231744 Dictated By: Fredo Lopez Jr, DO 04/29/231744 Signed By: 04/29/231744 Normal [facility] pH Auto test strip (U)Ordere d By: Dillon José on 04-29-2023 pH (U) 7.0 [pH] 5.0-9.0 [facility] Complete Blood Count with Au to Diffon 04-11-2022 Basophils (Bld) [#/Vol] 0.05 10*3/uL Normal 0.00-0.20 [facility] Specialist Comment on above: Performed By: #### C BCAD, TSH, LIPD, CMP #### [facility] [address] [place], [place] [id number] Basophils/100 WBC (Bld) 0.7 % Normal [facility] Comment on above: Performed By: #### C BCAD, TSH, LIPD, CMP #### [facility] [address] [place], [place] [phone] Eosinophils (Bld) [#/Vol] 0.11 10*3/uL Normal 0.02-0.50 [facility] Specialist Comment on above: Performed By: #### C BCAD, TSH, LIPD, CMP #### [facility] [address] [place], [place] [id number] Eosinophils/100 WBC (Bld) 1.5 % Normal [facility] Specialist Comment on above: Performed By: #### C BCAD, TSH, LIPD, CMP #### [facility] [address] [place], [place] [id number] Erythrocyte distribution width (RBC) [Ratio] 12.2 % Normal 11.0-15.0 [facility] Specialist Comment on above: Performed By: #### C BCAD, TSH, LIPD, CMP #### [facility] [address] [place], [place] [id number] Hematocrit (Bld) [Volume fraction] 40.9 % Normal 35.0-47.0 [facility] Specialist Comment on above: Performed By: #### C BCAD, TSH, LIPD, CMP #### [facility] [address] [place], [place] [id number] Hemoglobin (Bld) [Mass/Vol] 13.1 g/dL Normal 11.6-15.5 [facility] Special[facility] Comment on above: Performed By: #### C BCAD, TSH, LIPD, CMP #### [facility] [address] [place], [place] [id number] Lymphocytes (Bld) [#/Vol] 2.2 10*3/uL Normal 0.9-3.9 [facility] Comment on above: Performed By: #### C BCAD, TSH, LIPD, CMP #### [facility] [address] [place], [place] [id number] Lymphocytes/100 WBC (Bld) 30.9 % Normal [facility] Specialist Comment on above: Performed By: #### C BCAD, TSH, LIPD, CMP #### [facility] [address] [place], [place] [id number] MCH (RBC) [Entitic mass] 28.0 pg Normal 27.0-33.0 [facility] Specialist Comment on above: Performed By: #### C BCAD, TSH, LIPD, CMP #### [facility] [address] [place], [place] [id number] MCHC (RBC) [Mass/Vol] 32.0 g/dL Normal 32.0-36.0 [facility] Comment on above: Performed By: #### C BCAD, TSH, LIPD, CMP #### [facility] [address] [place], [place] [id number] MCV (RBC) [Entitic vol] 87 fL Normal 80-100 N [facility] Specialist Comment on above: Performed By: #### C BCAD, TSH, LIPD, CMP #### [facility] [address] [place], [place] [id number] Monocytes (Bld) [#/Vol] 0.5 10*3/uL Normal 0.2-0.9 [facility] Comment on above: Performed By: #### C BCAD, TSH, LIPD, CMP #### [facility] [address] [facility] [place] [phone] Monocytes/100 WBC (Bld) 6.9 % Normal [facility] Comment on above: Performed By: #### C BCAD, TSH, LIPD, CMP #### [facility] [address] [facility] [place] [id number] Neutrophils (Bld) [#/Vol] 4.3 10*3/uL Normal 1.5-7.8 [facility] Comment on above: Performed By: #### C BCAD, TSH, LIPD, CMP #### [facility] [address] [place], [place] [id number] Neutrophils/100 WBC (Bld) 59.7 % Normal [facility] Comment on above: Performed By: #### C BCAD, TSH, LIPD, CMP #### [facility] [address] [place], [place] [id number] Platelet mean volume (Bld) [Entitic vol] 9.30 fL Normal 7.50-12.50 [facility] Comment on above: Performed By: #### C BCAD, TSH, LIPD, CMP #### [facility] [address] [facility] [place] [id number] Platelets (Bld) [#/Vol] 372 10*3/uL Normal 140-400 [facility] Comment on above: Performed By: #### C BCAD, TSH, LIPD, CMP #### [facility] [address] [facility] [place] [id number] RBC (Bld) [#/Vol] 4.68 10*6/uL Normal 3.90-5.20 [facility] Comment on above: Performed By: #### C BCAD, TSH, LIPD, CMP #### [facility] [address] [facility] [place] [id number] RDW-SD 39.4 fL Normal 37.0-50.0 [facility] Comment on above: Performed By: #### C BCAD, TSH, LIPD, CMP #### [facility] [address] [place], [place] [id number] WBC (Bld) [#/Vol] 7.2 10*3/uL Normal 3.8-11.0 iDana rn [place] [facility] Comment on above: Performed By: #### C BCAD, TSH, LIPD, CMP #### [facility] [address] [place], [place] [id number] Comprehensive Metabolic Pane dora 04-11-2022 Albumin [Mass/Vol] 4.5 g/dL Normal 3.6-5.1 Diana rn [place] [facility] Comment on above: Performed By: #### C BCAD, TSH, LIPD, CMP #### [facility] [address] [place], [place] [id number] Albumin/Globulin [Mass ratio] 1.6 {ratio} Normal 1.0-2.5 [facility] Comment on above: Performed By: #### C BCAD, TSH, LIPD, CMP #### [facility] [address] [facility] [place] [id number] ALP [Catalytic activity/Vol] 57 U/L Normal 35-119 [facility] Comment on above: Performed By: #### C BCAD, TSH, LIPD, CMP #### [facility] [address] [place], [place] [id number] ALT [Catalytic activity/Vol] 25 U/L Normal 6-33 [facility] Comment on above: Result Comment: 10/11 Female reference range changed. Performed By: #### C BCAD, TSH, LIPD, CMP #### [facility] [address] [facility] [place] [id number] Anion gap [Moles/Vol] 19 mmol/L Normal 12-20 [facility] [place] [facility] Comment on above: Result Comment: Effe ctive 11/16/2019 reference range changed. Performed By: #### C BCAD, TSH, LIPD, CMP #### [facility] [address] [facility] [place] [id number] AST [Catalytic activity/Vol] 36 U/L High 9-34 [facility] Comment on above: Performed By: #### C BCAD, TSH, LIPD, CMP #### [facility] [address] [place], [place] [id number] Bilirubin [Mass/Vol] 0.36 mg/dL Normal 0.30-1.20 [facility] Comment on above: Performed By: #### C BCAD, TSH, LIPD, CMP #### [facility] [address] [place], [place] [id number] BUN/CREA 19 Ratio Normal 6-22 [facility] Comment on above: Performed By: #### C BCAD, TSH, LIPD, CMP #### [facility] [address] [place], [place] [id number] Calcium [Mass/Vol] 9.6 mg/dL Normal 8.6-10.2 [facility] Comment on above: Performed By: #### C BCAD, TSH, LIPD, CMP #### [facility] [address] [place], [place] [id number] Chloride [Moles/Vol] 103 mmol/L Normal 98-107 [facility] Comment on above: Performed By: #### C BCAD, TSH, LIPD, CMP #### [facility] [address] [place], [place] [id number] CO2 [Moles/Vol] 21 mmol/L Normal 20-31 [facility] Comment on above: Performed By: #### C BCAD, TSH, LIPD, CMP #### [facility] [address] [place], [place] [id number] Creatinine [Mass/Vol] 0.7 mg/dL Normal 0.6-1.4 [facility] Comment on above: Performed By: #### C BCAD, TSH, LIPD, CMP #### [facility] [address] [place], [place] [id number] eGFRAA 122 mL/min/1.73m2 Normal >60 [facility] Comment on above: Performed By: #### C BCAD, TSH, LIPD, CMP #### [facility] [address] [place], [place] [id number] eGFRNAA 101 mL/min/1.73m2 Normal >60 [facility] Director Of Promotions Comment on above: Performed By: #### C BCAD, TSH, LIPD, CMP #### [facility] [address] [place], [place] [id number] Globulin (S) [Mass/Vol] 2.8 g/dL Normal 1.9-3.7 [facility] Director Of Promotions Comment on above: Performed By: #### C BCAD, TSH, LIPD, CMP #### [facility] [address] [place], [place] [id number] Glucose [Mass/Vol] 95 mg/dL Normal 65-99 Diana batres [place] [facility] Comment on above: Result Comment: For FASTING Glucose --- ADA reference ranges: Normal 65-99 mg/dl Prediabetes 100-125 Diabetes >/= 126 Performed By: #### C BCAD, TSH, LIPD, CMP #### [facility] [address] [place], [place] [id number] Potassium [Moles/Vol] 4.3 mmol/L Normal 3.5-5.5 [facility] Director Of Promotions Comment on above: Performed By: #### C BCAD, TSH, LIPD, CMP #### [facility] [address] [place], [place] [id number] Protein [Mass/Vol] 7.3 g/dL Normal 6.1-8.1 Diana batres [place] [facility] Comment on above: Performed By: #### C BCAD, TSH, LIPD, CMP #### [facility] [address] [place], [place] [id number] Sodium [Moles/Vol] 139 mmol/L Normal 135-146 Diana batres [place] [facility] Comment on above: Performed By: #### C BCAD, TSH, LIPD, CMP #### [facility] [address] [place], [place] [id number] Urea nitrogen [Mass/Vol] 14 mg/dL Normal 7-25 [facility] Director Of Promotions Comment on above: Performed By: #### C BCAD, TSH, LIPD, CMP #### [facility] [address] [place], [place] [id number] Hemoglobin A1Con 04-11-2022 EAG 108.28 Normal [place] [facility] Comment on above: Performed By: #### A 1C #### [facility] [address] [place], [place] [id number] HbA1c (Bld) [Mass fraction] 5.4 % Normal 4.0-6.0 [facility] Specialist Comment on above: Performed By: #### A 1C #### [facility] [address] [place], [place] [id number] Lipid Panelon 04-11-2022 Cholesterol [Mass/Vol] 138 mg/dL Normal 125-200 [facility] Comment on above: Result Comment: Low risk < 200mg/dL Borderline risk 201-239 mg/dl High risk > or equal to 240 Performed By: #### C BCAD, TSH, LIPD, CMP #### [facility] [address] [place], [place] [id number] Cholesterol in HDL [Mass/Vol] 47 mg/dL Normal >40 [facility] Specialist Comment on above: Result Comment: High Cardiovascular Risk HDL <40 mg/dL Low Cardiovascular Risk HDL > or equal to 60 mg/dl Performed By: #### C BCAD, TSH, LIPD, CMP #### [facility] [address] [place], [place] [id number] Cholesterol in LDL [Mass/Vol] 72 mg/dL Normal [facility] Specialist Comment on above: Result Comment: LDL ATP III CLASSIFICATION LDL less than 100 mg/dl Optimal LDL 100-129 mg/dl Near or above optimal LDL 130-159 Borderline high LDL 160-189 High LDL greater than 189 mg/dl Very High Performed By: #### C BCAD, TSH, LIPD, CMP #### [facility] [address] [place], [place] [id number] Cholesterol in VLDL [Mass/Vol] 19 mg/dL Normal [facility] Specialist Comment on above: Performed By: #### C BCAD, TSH, LIPD, CMP #### [facility] [address] [place], [place] [id number] Cholesterol.total/Teagan sterol in HDL [Mass ratio] 3 {ratio} Normal [facility] Specialist Comment on above: Performed By: #### C BCAD, TSH, LIPD, CMP #### [facility] [address] [place], [place] [id number] Triglyceride [Mass/Vol] 97 mg/dL Normal 30-150 N orthern [place] Director Of Promotions Comment on above: Result Comment: TRIG ATPIII CLASSIFICATIONS TRIG less than 150 mg/dl Normal TRIG 150-199 mg/dl Borderline High TRIG 200-500 mg/dl High TRIG greather than 500 mg/dl Very High Performed By: #### C BCAD, TSH, LIPD, CMP #### [facility] [address] [place], [place] [id number] TSHon 04-11-2022 TSH 1.380 uIU/mL Normal 0.400-4.500 [facility] Director Of Promotions Comment on above: Performed By: #### C BCAD, TSH, LIPD, CMP #### [facility] [address] [place], [place] [id number] Pediatric Medicine 18+on Pediatric Medicine 18+ Chief Complaint Milena sts she has an Infected area on left breast, pus draining from it. History of Present Illness pt started noticing redness of hair follicle about 1 week ago- had similar change on R - seems healed but scarred on R was able to express a lot of pus yesterday- green pus, chunky whitish material and blood no fevers nor chills redness around area only has not had ongoing drainage no h/o skin infection, Gma with h/o abscess at nape of neck- unsure etiology, surgically treated Active Problems Anxiety disorder, unspecified type (300.00) (F41.9) BMI (body mass index), pediatric, greater than or equal to 95% for age (V85.54) (Z68.54) Depression (311) (F32.9) Encounter for routine child health examination without abnormal findings (V20.2) (Z00.129) Menorrhagia with regular cycle (626.2) (N92.0) Need for vaccination (V05.9) (Z23) Weight gain, abnormal (783.1) (R63.5) Past Medical History History of acute sinusitis (V12.69) (Z87.09) History of cough History of stress fracture (V13.52) (Z87.312) No pertinent past medical history History of Pharyngitis due to group A beta hemolytic Streptococci (034.0) (J02.0) History of Sensation of lump in throat (784.99) (R22.1) History of Weight gain (783.1) (R63.5) Surgical History History of Knee Surgery Oct 2017 Family History Father Family history of hypertension (V17.49) (Z82.49) Unknown Family history of Known health problems: none Social History Lives with parents () Never a smoker No tobacco/smoke exposure Pets in the home Allergies Penicillins Recorded By: Rosario Grajeda; 10/28/2018 4:01:31 PM Vitals Vital Signs Recorded: [id number] 03:14PM Olgyqpzevpo95 F, Temporal Abrwth977 lb 2-20 Weight Nhpxqpzewt06 % Physical Exam Gen: alert, non-toxic appearing, NAD Neck: supple, normal ROM, <1cm few nontender mobile solitary anterior cervical LNs palpable without overlying skin changes nor fluctuance Chest: symmetric, CTAB, no g/f/r/wheezing Heart: RRR, no murmur, S1/S2 normal Neuro: normal tone, cranial nerves grossly intact, symmetric movement of extremities Skin: bilatt nipple piercings- tissue of both nipples appear healthy, R breast with very small firm nodule- slight hyperpigmentation at site of previous pustule- nontender. L breast at approx 1 o'clock just caudal to areola w/shooter marble sized nodule and visible punctum- drainage mostly clear and scant, nonfluctuant, diffuse mild erythema surrounding- no streaking, no axillary tenderness, no LA of neck nor L axilla, tail of breast nontender Diagnoses/Problems Abscess (682.9) (L02.91) Orders Abscess Start: Sulfamethoxazole-Trimeth oprim 800-160 MG Oral Tablet (Bactrim DS); one tablet twice daily Rx By: Tor Patino; Dispense: 10 Days ; #:20 Tablet; Refill: 0;For: Abscess; KASSIE = N; Verified Transmission to [facility]; Last Updated By: Grazyna MobuiMeenaFive Delta; 10/27/2019 3:38:20 PM Cult, Body Fluid, + smear; Specimen Source:Fluid; Status:Active; Requested for:[id number]; Perform:Lab Services - Lab To Draw (Non-Blood Test); Order Comments:L breast abscess; Due:25Jan2020;Ordered; For:Abscess; Ordered By:Tor Patino; Patient Discussion/Summary Take all meds Will call in 3 days for update and to report culture results Call if any worsening- discussed s/s worsening infection- would likely need IV abx and surgical I/D at that time, discussed wound cx sent with pt for delivery to [facility] [place] lab warm compress, discussed washing with hibiclens for prevention Signatures Electronically signed by : Tor Patino MD; Oct 27 2019 3:45PM EST (Author) Normal [facility] HM -19 Yearson 10-28-2017 12-18 Years Chief Complaint 18 yr [facility] History of Present Illness MILENA is 18 year old here today with mother for routine health maintenance exam. Parental Concerns Raised Today Include: sadness and stressed. Suicidality/Mental Health/Violence: MILENA is stressed and sad. This has been going on for awhile. At least before the beginning of this school year. Maybe even longer because she remembers about a year ago thinking it might be easier if she was not alive. Her mother is her best counselor and support system/person. She does not do a lot of things with her peers. She is finding it harder to get adrian out of regular activities or things she used to once find fun. She is not wanting to hurt herself or anyone else currently. She also feels stressed out - just about everything in general. General Health: MILENA overall is in good health. She has lost weight through increased exercising and better choices and portion control. Sleep: Sometimes takes awhile to fall asleep because her mind is racing and she is worried. She is working out a lot and sometimes will sleep after for an hour or two. Education: She is in a 12th grade. School behaviors are within normal limits. School performance is at grade level. She signs on Saturday with [employer] for softball pitching. Activities: Exercises regularly, lifting and working out a lot. Softball Pitching. Sports Participation Screening: No history of a concussion(s), no fainting or near fainting during or after exercise, no chest pain during exercise, no shortness of breath during exercise and no palpitations, rapid or skipped heart beats at rest or during exercise . MILENA has no known heart problems. She has not had a family member that had a heart attack or without a cause prior to 50 years of age. Menses: The cycles have been regular - on average once a month Her bleeding typically lasts 4 - 5 days Bleeding has been normal without excessive heaviness. She does not experience excessive cramping. Safety: MILENA uses safety belts or equipment, uses sunscreen, and has nonviolent peer relationships Internet Safety reviewed. Dental Care: MILENA has a dental home and dental hygiene is regularly performed MILENA has not had any serious prior vaccine reactions. Active Problems Need for vaccination (V05.9) (Z23) Weight gain, abnormal (783.1) (R63.5) Past Medical History History of acute sinusitis (V12.69) (Z87.09) History of cough History of stress fracture (V13.52) (Z87.312) No pertinent past medical history History of Pharyngitis due to group A beta hemolytic Streptococci (034.0) (J02.0) History of Sensation of lump in throat (784.99) (R22.1) History of Weight gain (783.1) (R63.5) Surgical History History of Knee Surgery Oct 2017 Family History Family history of hypertension (V17.49) (Z82.49) Family history of Known health problems: none Social History Lives with parents () Never a smoker No tobacco/smoke exposure Pets in the home Allergies Penicillins Recorded By: Rosario Grajeda; 10/28/2018 4:01:31 PM Vitals Vital Signs Recorded: [id number] 03:57PM Heart Rate62 Qydimowt500 Wvwktbmbr84 Height5 ft 3.25 in 2-20 Stature Csjmdauxtk77 % Eabtlo308 lb 2-20 Weight Deflchiuan09 % BMI Ukrtvdtotk53.32 BMI Dbysamvayn31 % BSA Calculated1.94 O2 Tshjsvtofe75 Physical Exam Constitutional: Well developed, well nourished, well hydrated and no acute distress. Eyes: Pupils equal, round, reactive to light. Extra-ocular movement normal. HEENT: TMs normal color, normal landmarks, no fluid, non-retracted. External auditory canals without swelling, redness or tenderness. Pharyngeal mucosa normal. No erythema, exudate, or lesions. Mucous membranes moist. Neck: Full range of motion. No significant adenopathy. Pulmonary: No rales or wheezing. Good air exchange. Cardiovascular: Regular rate and rhythm. No significant murmur. Chest: Deferred - no concerns. Abdomen: Soft, non-tender, no masses. No hepatomegaly or splenomegaly. Genitourinary: Deferred. No concerns. Lymphatic: No significant cervical adenopathy. MS: Back straight. No scoliosis Neurologic: Normal gait. Reflexes: Normal. Deep tendon reflexes: 1+ right patella and 1+ left patella. Diagnoses/Problems Encounter for routine child health examination without abnormal findings (V20.2) (Z00.129) BMI (body mass index), pediatric, greater than or equal to 95% for age (V85.54) (Z68.54) Depression (311) (F32.9) Anxiety disorder, unspecified type (300.00) (F41.9) Orders Anxiety disorder, unspecified type, Depression Start: Escitalopram Oxalate 5 MG Oral Tablet (Lexapro); TAKE 1 TABLET DAILY Rx By: Cynthia Díaz; Dispense: 30 Days ; #:30 Tablet; Refill: 0;For: Anxiety disorder, unspecified type, Depression; KASSIE = N; Verified Transmission to [facility]; Last Updated By: DrinkSendo; 10/28/2018 4:57:38 PM Patient Discussion/Summary Impression: Congratulations on exercising more and losing weight. Concerns addressed include: sadness/depression/worry . We discussed options of counseling and starting a medication. We discussed the side effects of the medications including the box warning and the Serotonin Syndrome. We also discussed that she is very sensitive about regaining weight, so she will call if this increases her appetite or she feels that she is gaining weight because of the medication. We will start Lexapro 5 mg daily. If after 1 - 2 weeks she is not having any side effects and is not feeling any benefit then she can increase to 2 tabs each morning (for 10 mg total). They will also start counseling. I will see her back in the office in 4-6 weeks. immunizations are current. (We will do Men B at follow up visit in 4 - 6 weeks. ). Discussed eating a balanced diet, discussing menstruation and participating in physical activities 60 min daily . Teenage Depression Screening: Patient treated. Signatures Electronically signed by : Cynthia Díaz MD; Oct 28 2018 5:19PM EST (Author) Normal [facility] MRI KNEE WO CONTRAST LEFTon 05-15-2018 [facility] [place] [address] ==Patient Name: MILENA AGUILERA : 2000Sex: FAge: Race: WhiteMRN: [id number]. Location: 84Patient Status: DVisit #: [id number] Date: 03/25/2018 4:35:00 PMCompleted Date: 03/25/2018 06:01 PMRequesting Provider: CHERIE PALMER Attending Provider: CHERIE PALMER Report Copy To: SELF, REFERRED Signs & Symptoms: M25.562 Pain in left knee [id number]: Chana Aebarry authorization (per Kevin in Ortho) [id number] Left Lower Extremity Joint [address] [employer] [phone] - see note scanned inComments: , , , Ordering Provider - CHERIE PALMER MD , Rendering Provider - CHERIE PALMER MD , Exam: MRI KNEE WO CONTRAST LEFTAccession #: [id number] =========MRI KNEE WO CONTRAST LEFT 03/25/2018 6:01 PM EDT SIGNS AND SYMPTOMS: M25.562 Pain in left knee I10 TECHNOLOGIST COMMENTS: Patient states sports related injury two weeks ago. Patient complains of pain at the patella. QUESTION FOR THE RADIOLOGIST: , , , Ordering Provider - CHERIE PALMER MD , Rendering Provider - CHERIE PALMER MD , PROTOCOL: Images were obtained in the following sequences: 3-plane localizer, axial PD fat-sat, sagittal PD fat-sat, sagittal GRE, coronal PD fat-sat, and coronal T1. COMPARISON: None. 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 TTTG is 15 mm. Superficial soft tissues: Mild generalized edema, more focal along the patellar tendon origin. Muscles: No injury. Mild fatty change. Tendons: Patellar tendon origin tendinitis with linear tears along the central to medial half of the tendon, less than 30% total tendon integrity. Collateral ligaments: Intact. Patellofemoral ligaments: Intact with stretching medially and buckling laterally. Patellofemoral cartilage: Intact with no chondral defects. Cruciate ligaments: Intact. Weightbearing cartilage: Intact. Menisci: Intact. Joint cavity: Small effusion. Mild infrapatellar fat pad edema adjacent to the patellar tendon tear. IMPRESSION: 1. Partial patellar tendon tear at the origin, 30% or less total. See series 6 image 8 and series 3 image 16. 2. 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 TTTG of 15 mm. Electronically signed by:Denis Pike. Transcribed by: [email or web address], User Resident: Electronically Signed by: DENIS PIKE @ 03/26/2018 11:11 AM Normal [facility] Comment on above: Order Comment: , , = ========= , Ordering Provider - CHERIE PALMER MD , Rendering Provider - CHERIE PALMER MD , Operative Reporton 7 Operative Report MR#: [id number] [facility] Pt. 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 Right knee diagnostic arthroscopy.2. 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 After her first dislocation, she triedbracing and therapy. She however has failed this and has had a seconddislocation. An MRI demonstrated a tear of the medial patellofemoralligament off the femur, there was also some question of a possible lateralmeniscus tear. I was also worried about the cartilage underneath thepatella given her multiple dislocations. I therefore offered her right kneeopen repair of the medial patellofemoral ligament, but also a right kneediagnostic arthroscopy. If there was any problems with the meniscus or thecartilage requiring surgical intervention, we would perform this at thesame time. The risks and benefits were discussed in the clinic. An informedconsent was obtained from her parents and she was scheduled for theprocedure on 10/31/2017.PROCEDURE IN DETAIL: After confirmation and marking of the correctsurgical extremity in the preoperative holding area, the patient wasbrought back to the operating suite and placed in the supine position. Allpressure points were adequately padded, the right lower extremity wasprepped and draped in a sterile fashion. After observation of a surgicaltime-out procedure using 2 separate patient identifiers, we began with thecase.We first started with infiltration of the knee itself on the proposedincisions with 20 mL of 1% lidocaine with epinephrine. We then createdstandard anterolateral and anteromedial viewing and working portals. Aprobe was inserted and we began with a diagnostic arthroscopy.We first started with inspection of the medial compartment. No chondral ormeniscal injuries. There was some inflammation in the knee around thepatella, so this was resected using the arthroscopic shaver. The ACL andPCL were intact. The lateral compartment was visualized and probed, andfound to have no tears of the meniscus. The patella did demonstrate somechondral injury, but nothing that required surgical intervention. From themultiple dislocations, there were some fissures and cracks in the patella,but these were probed and not found to be unstable and not deep enough towarrant microfracture.At this point, we turned our attention to the open portion of the case. Wecreated a 3 cm incision centered over the medial epicondyle. We took thisdown through skin and subcutaneous tissue sharply and then divided theretinaculum to expose the underlying medial patellofemoral ligament. Thiswas a structurally good tissue, but had avulsed off its origin off thedistal femur. We therefore roughened up the origin site and here implanteda single Arthrex 4.5 mm PEEK Corkscrew suture anchor double loaded withFiberWire. These were then woven into the medial patellofemoral ligamentwith interlocked mattress and Tomas-Carrillo sutures. We then tied down thisaffected and anatomic repair of the medial patellofemoral ligament. Onexam, the patella which had previously been unstable was now stable. Ramon closed the retinaculum using 0 Vicryl sutures. The skin was thenclosed using 2-0 Vicryl in a running subcuticular Biosyn suture. A sterilecompressive wrap, Polar Care unit, and hinged knee brace locked inextension were all applied. The patient was then awakened and extubated,and brought back to the PACU in stable condition. I was present, scrubbed,and actively participating through all guardado portions of the surgery.ESTIMATED BLOOD LOSS: Minimal.COMPLICATIONS: None.DISPOSITION: To the PACU in stable condition.POSTOPERATIVE PLAN: I will see Milena back in 10-14 days time for sutureremoval and initiation of physical therapy. She may be weightbearing astolerated while in the brace over the next 6 weeks.Electronically Signed by:Cherie Palmer M.D. 11/01/2017 02:06 P Cherie Palmer M.D.Date Dict: 10/31/2017/08:49 A/Cherie Palmer M.D.Date Trans: 10/31/2017 07:54 P/Mike_JN:[id number] 1cc: [place] Iglesias M.D. [address] [place] [address] Normal [facility] POC GLUCOSE LABon 10-31-2017 Glucose mass conc 99 mg/dL Normal 70-100 [facility] Comment on above: Performed By: #### [id number] ####[facility] POC URINE PREGNANCYon 2016 HCG.beta subunit ( test) Ql (U) Negative Normal NEGATIVE [facility] Comment on above: Result Comment: Perf ormed in PACU Performed By: #### [id number] ####[facility] Vital Signs Date Time Vital Sign Value Performing Clinician Faci lity 04-29-2023 20:57-0400 Diastolic blood pressure 67 mm[Hg] PHYSICIAN NO [facility] 04-29-2023 20:57-0400 Heart rate 61 /min PHYSICIAN NO [facility] 04-29-2023 20:57-0400 Respiratory rate 16 /min PHYSICIAN NO [facility] 04-29-2023 20:57-0400 SaO2% (BldA) [Mass fraction] 96 % PHYSICIAN NO [facility] 04-29-2023 20:57-0400 Systolic blood pressure 120 mm[Hg] PHYSICIAN NO [facility] 04-29-2023 16:19-0400 Body height 160.02 cm PHYSICIAN NO [facility] 04-29-2023 16:19-0400 Body temperature 98.8 [degF] PHYSICIAN NO [facility] 04-29-2023 16:19-0400 Body weight 110.75 kg PHYSICIAN NO [facility] Encounters Encounter Date Encounter Type Care Provider Facility Start: 05-04-2024 End: 05-04-2024 ambulatory FABY L CUTLER Not Available Start: 04-17-2024 End: 04-17-2024 ambulatory FABY L CUTLER Not Available Start: 03-27-2024 End: 03-27-2024 ambulatory FABY L CUTLER Not Available Start: 10-05-2023 End: 10-05-2023 ambulatory ROSANGELA M WORKMAN Not Available Start: 04-29-2023 End: 04-29-2023 Emergency department patient visit Dillon José Facility:[facility] Start: 04-29-2023 End: 04-29-2023 Emergency department patient visit PHYSICIAN FLOYD PANG [facility] Work Phone: Start: 10-27-2019 Patient encounter procedure Tor Patino [facility] Work Phone: Start: 12-09-2018 Patient encounter procedure Cynthia Jerri Arjun Facility:[id number] Start: 10-28-2018 Patient encounter procedure Cynthia Guthrie Arjun Facility:[id number] Start: 10-01-2018 Patient encounter procedure Judy Mejia Facility:[id number] Start: 06-26-2018 Patient encounter procedure Jered Canales Facility:[id number] Start: 06-06-2018 Patient encounter procedure Cynthia Guthrie Arjun Facility:[id number] Start: 03-25-2018 End: 03-26-2018 Ambulatory CHERIE APLMER Facility:[email or web address] Start: 10-31-2017 End: 11-01-2017 Ambulatory CHERIE PALMER Facility:[facility] [[email or web address] Start: 10-08-2017 End: 10-09-2017 Ambulatory DEFAULT PHYSICIAN Facility:[facility] [[email or web address] Procedures Date Procedure Procedure Detail Performing Clinician Start: 04-29-2023 Plain chest X-ray PHYSI ADOLFO PANG Start: 10-31-2017 ANESTH KNEE AREA SURGERY PANTERA KEO Start: 10-31-2017 KNEE ARTHROSCOPY DX PRACHI ID H NINA Start: 10-31-2017 RECONSTRUCTION KNEE PRACHI ID H NINA History of Knee Surgery Rosario Patino Plan of Treatment Date Care Activity Detail Author Patient Education Dizziness, Nonvertigo, (DC) [facility] Work Phone: Patient referral [facility] Work Phone: Immunizations Immunization Date Immunization Notes Care Provider Eliud carias 12-09-2018 meningococcal B vacc ine, recombinant, OMV, adjuvanted; Translations: [Bexsero Intramuscular Suspension Prefilled Syringe] [facility] Work Phone: 06-26-2018 meningococcal oligosaccharide (groups A, C, Y and W-135) diphtheria toxoid conjugate vaccine (MCV4O); Translations: [Menveo Intramuscular Solution Reconstituted] [facility] Work Phone: 02-09-2014 human papilloma viru s vaccine, quadrivalent Tor Patino [facility] Work Phone: 09-30-2013 human papilloma viru s vaccine, quadrivalent Tor Patino [facility] Work Phone: 07-29-2013 hepatitis A vaccine, unspecified formulation Tor Patino [facility] Work Phone: 07-29-2013 human papilloma viru s vaccine, quadrivalent [facility]: 07-26-2012 hepatitis A vaccine, unspecified formulation Tor Patino [facility] Work Phone: 07-26-2012 meningococcal polysaccharide (groups A, C, Y and W-135) diphtheria toxoid conjugate vaccine (MCV4P) Tor Patino [facility] Work Phone: 07-26-2012 tetanus toxoid, redu vanessa diphtheria toxoid, and acellular pertussis vaccine, adsorbed [facility] Work [facility]: 01-30-2010 varicella virus vaccine Tor Patino [facility] Work Phone: 01-24-2006 diphtheria, tetanus toxoids and acellular pertussis vaccine Tor Patnio [facility] Work Phone: 01-24-2006 measles, mumps and rubella virus vaccine Tor Patino [facility] Work Phone: 01-24-2006 poliovirus vaccine, inactivated Tor Patino [facility] Work Phone: 07-15-2002 diphtheria, tetanus toxoids and acellular pertussis vaccine Tor Patino [facility] Work Phone: 07-15-2002 haemophilus influenz ae type b vaccine, PRP-OMP conjugate [facility] Work Phone: 01-14-2002 measles, mumps and rubella virus vaccine Tor Patino [facility] Work Phone: 01-14-2002 pneumococcal conjuga te vaccine, 7 valent Tor Patino [facility] Work Phone: 01-14-2002 varicella virus vaccine Lentzrosario Patino [facility] Work Phone: 2001 diphtheria, tetanus toxoids and acellular pertussis vaccine Tor Patino [facility] Work Phone: 2001 haemophilus influenz ae type b vaccine, PRP-OMP conjugate Tor Patino [facility] Work Phone: 2001 hepatitis B vaccine, adult dosage Tor Patino [facility] Work Phone: 2001 pneumococcal conjuga te vaccine, 7 valent Tor Patino [facility] Work Phone: 2001 poliovirus vaccine, inactivated Tor Patino [facility] Work Phone: 2001 diphtheria, tetanus toxoids and acellular pertussis vaccine Lentz Alecaleksey [facility] Work Phone: 2001 haemophilus influenz ae type b vaccine, PRP-OMP conjugate Tor Patino [facility] Work Phone: 2001 pneumococcal conjuga te vaccine, 7 valent Tor Patino [facility] Work Phone: 2001 poliovirus vaccine, inactivated Tor Patino [facility] Work Phone: 2001 diphtheria, tetanus toxoids and acellular pertussis vaccine Tor Patino [facility] Work Phone: 2001 haemophilus influenz ae type b vaccine, PRP-OMP conjugate [facility] Work Phone: 2001 hepatitis B vaccine, adult dosage [facility] Work Phone: 2001 pneumococcal conjuga te vaccine, 7 valent [facility] Work Phone: 2001 poliovirus vaccine, inactivated [facility] Work Phone: 2001 hepatitis B vaccine, adult dosage [facility] Work Phone: Payers Date Payer Category Payer Self-pay [id number] 2022 Private Health Insurance [id number] 2006 Private Health Insurance [id number] 2001 Unknown [id number] 9 2001 Unknown [id number] 9 2001 Unknown [id number] 9 2001 Unknown [id number] 9 1976 Unknown [id number] 1976 Unknown [id number] 1975 Unknown [id number] 1975 Unknown [id number] 1975 Unknown [id number] Unknown Unknown [place] BC/BS [id number] Unknown HCAP/HFA/FAP Active [id number] Unknown [id number] Social History Date Type Detail Facility Start: 04-29-2023 Tobacco smoking status NHIS Smoker (finding) [facility] Start: 2000 Sex Assigned At Female [facility] NEGATED: Highlighted row - - [facility] Work Phone: Functional Status Date Assessment Result Facility NEGATED: Highlighted row Functional performance Functional status health issues are not documented Disease [facility] Work Phone: Mental Status Date Assessment Result Facility NEGATED: Highlighted row Cognitive function [Interpretation] Cognitive status health issues are not documented Disease [facility] Work Phone: Evaluation note Note Date & Type Note Facility Evaluation note No assessment information availa ble [facility] Work Phone: Hospital Discharge instructions Note Date & Type Note Facility Hospital Discharge instructions Additional Instructions Increase your intake of fluids and try to make sure you are eating more frequently during the day. Follow-up with the PCP for any persistent symptoms of dizziness within 5 7 days. [facility] Work Phone: Summary Purpose Family History No Family History Records FoundUnknown Family Member Name Dates Details Family history of Known heal th problems: none(V49.89, Z78.9) Comments:Unknown Status:Active Father Name Dates Details Family history of hypertensi on(V17.49, Z82.49) Status:Active Relationship Condition Age at Onset Recorded Date/T radha grandparent Cerebrovascular accident (CVA) Unknown Myocardial infarction Unknown father Hypertension Unknown Advance Directives No Advanced Directives Records Found Advance Directive Response Recorded Date/ Time Advance Directives No November 13, 2017 4:08pm Chief Complaint and Reason for Visit Chief Complaint Dizziness Additional Source Comments INFORMATION SOURCE (unrecogn ized section and content) DATE CREATED AUTHOR 05/15/2018 [facility] DATE CREATED AUTHOR AUTHOR'S ORGANIZ ATION 12/24/2018 [facility] DATE CREATED AUTHOR AUTHOR'S ORGANIZ ATION 10/28/2019 [facility] DATE CREATED AUTHOR AUTHOR'S ORGANIZ ATION 04/12/2022 [facility] dical Specialist DATE CREATED AUTHOR AUTHOR'S ORGANIZ ATION 05/15/2023 [facility] DATE CREATED AUTHOR AUTHOR'S ORGANIZ ATION 05/05/2024 [facility] dical Specialists EPIC Care Teams (unrecognized sec tion and content) Team Status: Active Member Role Status Dates PHYSICIAN NO FAMILY Primary Care Provider Active Team Status: Inactive Member Role Status Dates PHYSICIAN NO FAMILY Primary Care Provider Active Dillon José , DO Emergency Provider Active Goals (unrecognized section and content) Goals may be documented in a n alternate section FOR RECORDS PERTAINING TO PATIENTS WHO ARE OR HAVE BEEN ENROLLED IN A CHEMICAL DEPENDENCY/SUBSTANCEABUSE PROGRAM, SOME INFORMATION MAY BE OMITTED. This clinical summary was aggregated from multiple sources. Caution should be exercised in using it in the provision of clinical care. This summary normalizes information from multiple sources, and as a consequence, information in this document may materially change the coding, format and clinical context of patient data. In addition, data may be omitted in some cases. CLINICAL DECISIONS SHOULD BE BASED ON THE PRIMARY CLINICAL RECORDS. [facility] [employer] provides no warranty or guarantee of the accuracy or completeness of information in this document.
--- NOTE | 2024-05-06 18:24 | ED.EAR1 ---
HPI - Ear Problem General Chief complaint: Ear Stated complaint: EAR PAIN Time Seen by Provider: 05/06/24 18:07 Source: patient Mode of arrival: walk-in Limitations: no limitations History of Present Illness HPI Narrative: Patient is a 24-year-old female who presents to the emergency department with a family member for evaluation of continued left-sided ear and facial pain. Patient was diagnosed with an ear infection in urgent care 3 days ago and started on cefdinir. She has had occasional fluid drainage from the ear. She states she feels as though she has swelling and pain to the left side of the face. No fevers or vomiting. She is not concerned for . No medications taken prior to arrival. Related Data Home Medications ?Medication ?Instructions ?Recorded ?Confirmed buspirone 10 mg tablet 10 mg PO BID 05/06/24 05/06/24 cefdinir 300 mg capsule 300 mg PO BID 05/06/24 05/06/24 Previous Rx's ?Medication ?Instructions ?Recorded ketorolac 10 mg tablet 10 mg PO TID PRN pain #10 tabs 05/06/24 Allergies Allergy/AdvReac Type Severity Reaction Status Date / Time Penicillins Allergy Mild Hives Verified 05/06/24 18:15 Review of Systems ROS Constitutional Denies: fever or chills Eyes Denies: change in vision Ears, nose, mouth, and throat Reports: ear pain and ear discharge; Denies: throat pain or nasal congestion Cardiovascular Denies: chest pain Respiratory Denies: shortness of breath or cough Gastrointestinal Denies: nausea or vomiting Integumentary/Breast Denies: rash Neurological Denies: headache Hematologic/Lymphatic Denies: easy bruising or easy bleeding Exam Narrative Exam Narrative: Gen.: Awake, alert, in no distress Head: Normocephalic, atraumatic ENT: Moist mucous membranes, Right TM is clear, left external canal is edematous and tender with minimal clear fluid drainage noted. TM is not fully visualized. Diffuse tenderness of the left side of the face anterior to the ear. No mastoid point tenderness or swelling Respiratory: No respiratory distress Extremities: Moves extremities equally Psych: Normal mood and affect Neuro: No focal neuro deficit Skin: Warm, dry, intact Constitutional Vital Signs, click to edit/add: Last Vital Signs Temp 99.2 F 05/06/24 18:11 Pulse 77 05/06/24 18:11 Resp 18 05/06/24 18:11 BP 133/98 H 05/06/24 18:11 Pulse Ox 99 05/06/24 18:11 O2 Del Method Room Air 05/06/24 18:18 Course Vital Signs Vital signs: Vital Signs Temperature 99.2 F 05/06/24 18:11 Pulse Rate 77 05/06/24 18:11 Respiratory Rate 18 05/06/24 18:11 Blood Pressure 133/98 H 05/06/24 18:11 Pulse Oximetry 99 05/06/24 18:11 Oxygen Delivery Method Room Air 05/06/24 18:11 Temperature 99.2 F 05/06/24 18:11 Pulse Rate 77 05/06/24 18:11 Respiratory Rate 18 05/06/24 18:11 Blood Pressure 133/98 H 05/06/24 18:11 Pulse Oximetry 99 05/06/24 18:11 Oxygen Delivery Method Room Air 05/06/24 18:18 Medical Decision Making MDM Narrative Medical decision making narrative: Patient treated with Toradol for pain control, Ciprodex drops given for otitis externa. She was encouraged not to stop the cefdinir as she has been on it for several days. Follow-up PCP and return to the ER if symptoms change or worsen SHARED APC VISIT, PHYSICIAN ATTESTATION: [id number] I performed a substantive part of the MDM during the patient?s E/M visit. I personally evaluated and examined the patient. I personally made or approved the documented management plan and acknowledge its risk of complications. Medical Records Medical records reviewed: Yes I reviewed the patient's medical records Discharge Plan Discharge Stand Alone Forms: Portal Instructions Chief Complaint: Ear Clinical Impression: Acute pain of left ear, Otitis externa, Atypical face pain Patient Disposition: Home, Self-Care Time of Disposition Decision: 18:22 Condition: Good Prescriptions / Home Meds: New ketorolac 10 mg tablet 10 mg PO TID PRN (Reason: pain) Qty: 10 0RF No Action buspirone 10 mg tablet 10 mg PO BID cefdinir 300 mg capsule 300 mg PO BID Patient Comments: pt. reports on 3rd day. Print Language: Upper Sorbian Instructions: Swimmer's Ear (ED), Earache (ED) Additional Instructions: Please use antibiotic drops 3 times a day for 5 days to the affected ear, do not rinse or use Q-tips to the ear Referrals: Physician,Non-Staff, MD [Physician] - 1 week
[2024-05-06] MEDS: KETOROLAC TROMETHAMINE 10 MG TABLET PO (18:30)
[2024-05-06] MEDS: CIPROFLOXACIN HCL/DEXAMETH 0.3%/0.1% OTIC SUSP 150 DROP/7.5 ML BOTTLE OT (18:30)
== END 2024-05-06 18:36 | disposition home or self-care (01) ==
PROVIDERS: Emergency Provider Emergency Medicine; PCP Family Medicine
DX: H60.92 Unspecified otitis externa, left ear (principal); G50.1 Atypical facial pain; H92.02 Otalgia, left ear
CPT/HCPCS: 99283